=== PATIENT | female | born 1945 | race Caucasian/White ===

== ENCOUNTER 2021-03-19 08:48 | Outpatient (REF) | payer MEDICARE, SELFPAY ==
--- NOTE | ~2021-03-19 | MM_ITS ---
EXAMINATION: MM SCREENING DIGITAL BREAST TOMOSYNTHESIS, BILATERAL CLINICAL INFORMATION: Screening. Asymptomatic. The lifetime risk of breast cancer based on the Tyrer-Cuzick Model is 3%. COMPARISON: Mammography: 03/13/2020, 03/08/2019, 08/19/2017 TECHNIQUE: Digital breast tomosynthesis is performed in both the craniocaudal and mediolateral oblique views along with computer-aided detection (CAD). Synthesized 2D images are generated from the tomosynthesis. FINDINGS: There are scattered areas of fibroglandular density (ACR BI-RADS breast composition Category b). There are no significant masses, abnormal calcifications, or other abnormalities. There is no developing density. Smooth nodularity mid outer right breast are stable. There are scattered benign round calcifications. There is a pacemaker generator overlying and partly obscuring left axilla on the MLO view. MM/MM tomosynthesis screening BI IMPRESSION: No mammographic evidence of malignancy. ASSESSMENT: BI-RADS 2: Benign RECOMMENDATION: Routine annual mammography screening. This patient's information was entered into a reminder system with a target due date for their next mammogram.
== END 2021-03-19 08:49 | disposition home or self-care (01) ==
LOC: HO.MAMMO 08:48
PROVIDERS: Visit Provider Internal Medicine
DX: Z12.31 Encounter for screening mammogram for malignant neoplasm of breast (principal)
CPT/HCPCS: 77063; 77067

== ENCOUNTER 2022-03-22 06:30 | Day surgery (SDC) | payer MEDICARE, SELFPAY ==
[2022-03-16 10:47] VITALS: BMI 36.5
--- NOTE | 2022-03-18 08:42 | MHC.SHP ---
Pre-Procedural Eval Section A Date of Service: 03/18/22 The patient is an INPATIENT: No Changes since office visit: No Cold of Flu in the past 2 weeks, No New Medical Problems, No Changes in Medication and No Patient answered all questions The History & Physical has been completed within 30 days and I have reviewed it.: Yes Section B Chief Complaint: cataract Allergies: Allergies Allergy/AdvReac Type Severity Reaction Status Date / Time lisinopril [From ZESTRIL] AdvReac Intermediate COUGH Unverified 03/16/22 10:39 amlodipine AdvReac Unknown Cant Verified 03/16/22 10:39 remember rxn Plan Diagnosis/Plan: Unchanged I have reviewed the history and physical and performed a pertinent physical examination on my patient. No changes have occurred unless specified.
--- NOTE | 2022-03-19 09:49 | HO.ANESPROP2 ---
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 ICD in situ after cardiac arrest 2009 of unclear etiology (Interrogateion 12/2021 on chart) [facility] Past Medical History Medical History (Updated 03/16/22 @ 10:36 by Sapna Sullivan, RN) CHF (congestive heart failure) History of left bundle branch block (LBBB) HTN (hypertension) Myocardial infarction Oxygen dependent Presence of combination internal cardiac defibrillator (ICD) and pacemaker Tracheostomy in place Surgical History Surgical History (Updated 02/17/22 @ 09:27 by Sapna Sullivan, RN) History of permanent cardiac pacemaker placement History of tonsillectomy History of total right knee replacement (TKR) Hx of partial thyroidectomy Hx of tracheostomy Social History Social History Are you a primary human services care specialist to a significant other at home: No Do you presently have visiting nurse or other home services: Yes (cleaner signs) Patient Tobacco Use Status: Never used Tobacco Second Hand Smoke Exposure: No Use of substances other than those prescribed or required for medical reasons: No Have you been hit, kicked, punched, or otherwise hurt by someone within the past year? If so, by whom?: No Are you DNR?: No Advance Directives: No Advance Directives Information Provided: Yes Advance Directives on File: No Recently lost weight without trying: No Eating poorly because of decreased appetite: No Nutrition Risks: No Nutritional Risk Patient : No Meds Allergies Allergy/AdvReac Type Severity Reaction Status Date / Time lisinopril [From ZESTRIL] AdvReac Intermediate COUGH Verified 03/22/22 07:07 amlodipine AdvReac Unknown Cant Verified 03/16/22 10:39 remember rxn Home Medications Medication Instructions Recorded Confirmed Last Taken Type acetaminophen 500 mg tablet 500 mg PO Q6H PRN Pain 03/16/22 03/16/22 Unknown History albuterol sulfate 2.5 mg/3 mL 1 vial inhalation BID PRN wheezing 03/16/22 03/16/22 Unknown History (0.083 %) solution for nebulization amlodipine 5 mg tablet 1 tab PO DAILY 03/16/22 03/16/22 03/22/22 History aspirin 81 mg capsule 81 mg PO DAILY 03/16/22 03/16/22 Unknown History calcium citrate 250 mg 2 tab PO BID 03/16/22 03/16/22 Unknown History calcium-vitamin D3 5 mcg (200 unit) tablet carvedilol 25 mg tablet 1 tab PO BID 03/16/22 03/16/22 03/22/22 History cholecalciferol (vitamin D3) 25 25 mcg PO 3XW 03/16/22 03/16/22 Unknown History mcg (1,000 unit) tablet (Vitamin D3) docusate sodium 100 mg capsule 100 mg PO DAILY 03/16/22 03/16/22 Unknown History (Colace) fluticasone propionate 50 2 spray intranasal DAILY 03/16/22 03/16/22 Unknown History mcg/actuation nasal spray,suspension furosemide 40 mg tablet 40 tab PO DIRECTED 03/16/22 03/16/22 Unknown History [id number] C-Mn 500 cap PO 03/16/22 Unknown History mg-400 mg capsule (Glucosamine Chondroitin Maximum Strength) ipratropium 0.5 mg-albuterol 3 mg 3 ml inhalation TID PRN Wheezing 03/16/22 03/16/22 03/22/22 History (2.5 mg base)/3 mL nebulization soln losartan 100 mg tablet 1 tab PO DAILY 03/16/22 03/16/22 Unknown History potassium chloride 10 mEq 1 tab PO DAILY 03/16/22 03/16/22 Unknown History tablet,extended release pravastatin 40 mg tablet 1 tab PO BEDTIME 03/16/22 03/16/22 Unknown History Exam Exam Date and Time: March 19, 2022 0949 Height,Weight and Vital Signs: Height 5 ft 4.5 in Weight 97.976 kg Assessment and Plan Assessment Anesthesia Assessment: Chart Reviewed Documented by User: Tracy Walters MD 03/22/22 08:06 [facility] Past Medical History Medical History (Updated 03/16/22 @ 10:36 by Sapna Sullivan RN) CHF (congestive heart failure) History of left bundle branch block (LBBB) HTN (hypertension) Myocardial infarction Oxygen dependent Presence of combination internal cardiac defibrillator (ICD) and pacemaker Tracheostomy in place Family History Family history of problems with anesthesia: No Surgical History Surgical History (Updated 02/17/22 @ 09:27 by Sapna Sullivan RN) History of permanent cardiac pacemaker placement History of tonsillectomy History of total right knee replacement (TKR) Hx of partial thyroidectomy Hx of tracheostomy History of Problems with Anesthesia: No Social History Social History Are you a primary human services care specialist to a significant other at home: No Do you presently have visiting nurse or other home services: Yes (cleaner signs) Patient Tobacco Use Status: Never used Tobacco Second Hand Smoke Exposure: No Use of substances other than those prescribed or required for medical reasons: No Have you been hit, kicked, punched, or otherwise hurt by someone within the past year? If so, by whom?: No Are you DNR?: No Advance Directives: No Advance Directives Information Provided: Yes Advance Directives on File: No Recently lost weight without trying: No Eating poorly because of decreased appetite: No Nutrition Risks: No Nutritional Risk Patient : No Meds Allergies Allergy/AdvReac Type Severity Reaction Status Date / Time lisinopril [From ZESTRIL] AdvReac Intermediate COUGH Verified 03/22/22 07:07 amlodipine AdvReac Unknown Cant Verified 03/16/22 10:39 remember rxn Home Medications Medication Instructions Recorded Confirmed Last Taken Type acetaminophen 500 mg tablet 500 mg PO Q6H PRN Pain 03/16/22 03/16/22 Unknown History albuterol sulfate 2.5 mg/3 mL 1 vial inhalation BID PRN wheezing 03/16/22 03/16/22 Unknown History (0.083 %) solution for nebulization amlodipine 5 mg tablet 1 tab PO DAILY 03/16/22 03/16/22 03/22/22 History aspirin 81 mg capsule 81 mg PO DAILY 03/16/22 03/16/22 Unknown History calcium citrate 250 mg 2 tab PO BID 03/16/22 03/16/22 Unknown History calcium-vitamin D3 5 mcg (200 unit) tablet carvedilol 25 mg tablet 1 tab PO BID 03/16/22 03/16/22 03/22/22 History cholecalciferol (vitamin D3) 25 25 mcg PO 3XW 03/16/22 03/16/22 Unknown History mcg (1,000 unit) tablet (Vitamin D3) docusate sodium 100 mg capsule 100 mg PO DAILY 03/16/22 03/16/22 Unknown History (Colace) fluticasone propionate 50 2 spray intranasal DAILY 03/16/22 03/16/22 Unknown History mcg/actuation nasal spray,suspension furosemide 40 mg tablet 40 tab PO DIRECTED 03/16/22 03/16/22 Unknown History [id number]-cwk C-Mn 500 cap PO 03/16/22 Unknown History mg-400 mg capsule (Glucosamine Chondroitin Maximum Strength) ipratropium 0.5 mg-albuterol 3 mg 3 ml inhalation TID PRN Wheezing 03/16/22 03/16/22 03/22/22 History (2.5 mg base)/3 mL nebulization soln losartan 100 mg tablet 1 tab PO DAILY 03/16/22 03/16/22 Unknown History potassium chloride 10 mEq 1 tab PO DAILY 03/16/22 03/16/22 Unknown History tablet,extended release pravastatin 40 mg tablet 1 tab PO BEDTIME 03/16/22 03/16/22 Unknown History Exam Height,Weight and Vital Signs: Height 5 ft 4.5 in Weight 97.976 kg Vital Signs Temp Pulse Resp BP Pulse Ox O2 Del Method O2 Flow Rate 03/22/22 07:05 97.0 F 68 20 98/31 L 96 Nasal Cannula 1 Airway Mallampati Class: II TM Dist: >3cm Neck ROM: Full Loose/Missing/Broken Teeth: No (No broken or loose per patient) Heart: RRR Lungs: CTAB Other: Trach tube in place with trach mask Assessment and Plan Assessment Anesthesia Assessment: Anesthesia Plan Discussed Final Anesthetic Review Family History of Problems with Anesthesia: No History of Problems with Anesthesia: No NPO: Yes ASA Class: IV Final Preanesthetic Review: No Changes in Pt Med Stat, Meds/Allgs Chart Reviewed, Consent Obtained/Reviewed and Anes Risks/Benef Reviewed Patient Risk: High Procedure Risk: Low Assessment/Block/Sedation in SS: Assess/Block/Sedation-SS Anesthetic Plan Anesthetic Plan: MAC: Disposition: Standard PACU
[2022-03-22 07:05] VITALS: BP 98/31; PULSE 68; RESP 20; TEMP 36.1; O2SAT 96
[2022-03-22] MEDS: Tetracaine HCl/PF 0.5% Oph Sol 4 ML DROPS 1 DROP EYE-RIGHT (07:11)
[2022-03-22] MEDS: Cyclopentolate 1 % Ophth Sol 2 ML DRPBTL 1 DROP EYE-RIGHT ×3 (07:12→07:20)
[2022-03-22] MEDS: Tropicamide 1 % Ophth Sol 3 ML BTL 1 DROP EYE-RIGHT ×3 (07:13→07:21)
[2022-03-22] MEDS: Phenylephrine HCL 2.5% Oph SoL 2 ML BOTTLE 1 DROP EYE-RIGHT ×3 (07:15→07:23)
[2022-03-22] MEDS: Lactated Ringers 500 ML 50 ML IV (07:30)
--- NOTE | 2022-03-22 08:50 | HO.PNOPHT ---
Ophthalmology Procedure Procedure Date of Service: 03/22/22 Ophthalmology Viscoelastic: Reanna Bynumt Dual Pack Pro Ophthalmology Lenses: TECANNETTE [id number] (26) Procedure Notes: PREOPERATIVE DIAGNOSIS: Decreased visual acuity right eye secondary to cataract POSTOPERATIVE DIAGNOSIS: Same PROCEDURE: Right cataract extraction with intraocular lens insertion SURGEON: Geovanni Morel M.D. ANESTHESIA: Topical/MAC ESTIMATED BLOOD LOSS: None COMPLICATIONS: None After obtaining informed consent, the patient was brought to the operating room suite and placed in the supine position. After adequate sedation per anesthesia, topical drops of Tetracaine were given to the right eye. The eye was then prepped and draped in the usual sterile fashion. The operating room microscope was then positioned over the operative eye and a lid speculum placed. A paracentesis was created. Viscoelastic was then instilled into the anterior chamber. A three plane incision was then created temporally, utilizing a 2.85 mm keratome. Capsulotomy forceps were then utilized to create a circular tear capsulotomy. Hydrodissection and hydrodelineation were carried out until adequate mobilization of the nucleus occurred. Phacoemulsification was then utilized to remove the dense central nucleus followed by removal of the cortical material utilizing the automated aspiration irrigation unit. Viscoelastic was instilled into the posterior capsular bag followed by placement of a posterior chamber intraocular lens without difficulty. The residual Viscoelastic was then removed utilizing the automated IA machine. The wound was checked and found to be watertight. The patient tolerated the procedure well and the lid speculum was removed. Intracameral injection of Vigamox 0.1 mL followed by a subtenon injection of Kenalog-40 0.2 mL were administered. The patient will be seen in the a.m.
[2022-03-22 09:18] VITALS: BP 115/48; PULSE 62; RESP 16; TEMP 36.4; O2SAT 97
== END 2022-03-22 09:32 | disposition home or self-care (01) ==
PROVIDERS: PCP Internal Medicine; Visit Provider Ophthalmology
PROC: (CPT 66985; principal; 2022-03-22 08:30)
DX: H25.11 Age-related nuclear cataract, right eye (principal); Z83.511 Family history of glaucoma; H54.7 Unspecified visual loss; E78.00 Pure hypercholesterolemia, unspecified; Z93.0 Tracheostomy status; I11.0 Hypertensive heart disease with heart failure; I50.9 Heart failure, unspecified; I25.2 Old myocardial infarction; Z79.82 Long term (current) use of aspirin; Z79.51 Long term (current) use of inhaled steroids; Z79.899 Other long term (current) drug therapy; Z99.81 Dependence on supplemental oxygen; Z88.8 Allergy status to other drugs, medicaments and biological substances; Z87.01 Personal history of pneumonia (recurrent); Z95.810 Presence of automatic (implantable) cardiac defibrillator; Z96.651 Presence of right artificial knee joint
CPT/HCPCS: 66984; J2250; J3010; J3300; V2632

== ENCOUNTER 2022-03-24 08:40 | Outpatient (REF) | payer MEDICARE, SELFPAY ==
--- NOTE | ~2022-03-24 | MM_ITS ---
EXAMINATION: BONE DENSITOMETRY CLINICAL INDICATION: Menopause. COMPARISON: Previous BD dated 08/19/2017 and baseline BD dated 11/26/2011. TECHNIQUE: Using a PureWRX DXA System (software version: 13.1) manufactured by [employer], dual-energy x-ray absorptiometry was performed of the lumbar spine and left hip. The images are of good technical quality. Summary results are attached. FINDINGS: AP SPINE L1-L4: Current: BMD 1.238 g/cm2, Z-score 1.1, T-score 0.5, normal, 0.6% decrease from previous, 0.2% decrease from baseline (<5% change is not significant). Prior: BMD 1.246 g/cm2. Baseline: BMD 1.241 g/cm2. LEFT FEMUR, NECK: Current: BMD 0.727 g/cm2, Z-score -1.0, T-score -2.2, osteopenia. Prior: BMD 0.710 g/cm2. Baseline: BMD 0.707 g/cm2. LEFT FEMUR, TOTAL: Current: BMD 0.821 g/cm2, Z-score -0.5, T-score -1.5, osteopenia, 9.4% decrease from previous, 7.6% decrease from baseline (<5% change is not significant). Prior: BMD 0.906 g/cm2. Baseline: BMD 0.889 g/cm2. IDENTIFIED RISK FACTORS: Menopause. HISTORY OF FRACTURE: None listed. MEDICATIONS: Calcium, vitamin D. MM/XR DEXA axial skeleton IMPRESSION: 1. DIAGNOSIS: Osteopenia based on the lowest T-score value of -2.2 in the femoral neck applying World Health Organization criteria. 2. 10-YEAR FRACTURE RISK PREDICTION, FRAX: Major osteoporotic fracture (clinical spine, forearm, hip or shoulder) 14.7%. Hip fracture 4.2%. 3. Treatment Recommendations: NOF guidelines recommend consideration for treatment in postmenopausal women and men age 50 and older presenting with the following: -A hip or vertebral (clinical or morphometric) fracture. -T-score less than or equal to -2.5 at the femoral neck or spine after appropriate evaluation to exclude secondary causes. -Low bone mass at the hip or spine and a 10-year fracture probability by FRAX of greater than or equal to 3% for hip fracture or greater than or equal to 20% for major osteoporotic fracture based on the [place] adapted WHO algorithm. 4. Other Recommendations: All treatment decisions require clinical judgment and consideration of individual patient factors, including patient preferences, comorbidities, previous drug use, risk factors not captured in the FRAX model (e.g. frailty, falls, vitamin D deficiency, increased bone turnover, interval significant decline in bone density) and possible under or overestimation of fracture risk by FRAX. Additional medical evaluation for secondary cause of low bone mineral density may be appropriate. FUTURE SCAN RECOMMENDATION: People with diagnosed cases of osteoporosis or at high risk for fracture should have regular bone mineral density tests. For patients eligible for Medicare, routine testing is allowed once every 2 years. The testing frequency can be increased to one year for patients who have rapidly progressing disease, those who are receiving or discontinuing medical therapy to restore bone mass, or have additional risk factors.
--- NOTE | ~2022-03-24 | MM_ITS ---
EXAMINATION: MM SCREENING DIGITAL BREAST TOMOSYNTHESIS, BILATERAL CLINICAL INFORMATION: Screening. Asymptomatic. The lifetime risk of breast cancer based on the Tyrer-Cuzick Model is 3%. COMPARISON: Mammography: 02/17/2021, 03/13/2020, 03/08/2019, 08/19/2017, 08/04/2016 TECHNIQUE: Digital breast tomosynthesis is performed in both the craniocaudal and mediolateral oblique views along with computer-aided detection (CAD). Synthesized 2D images are generated from the tomosynthesis. FINDINGS: There are scattered areas of fibroglandular density (ACR BI-RADS breast composition Category b). Pacemaker generator overlies and partly obscures posterior left axilla on MLO view. There is old intramammary nodes mid and posterior upper outer right breast similar to prior studies. Neither breast shows abnormal calcifications. The axilla are unremarkable. Left breast shows no interval mass or architectural abnormality or developing density. Right breast has parenchymal asymmetry mid upper outer quadrant questionably more prominent versus shifting fibroglandular tissue. Patient will be recalled for additional imaging. MM/MM tomosynthesis screening BI IMPRESSION: Right: -Parenchymal asymmetry mid upper outer right breast questionably more prominent versus shifting fibroglandular tissue. Left: -No mammographic evidence of malignancy. ASSESSMENT: BI-RADS 0: Incomplete - Need Additional Imaging Evaluation RECOMMENDATION: 1. Additional views of the right breast (rolled CC x2, spot MLO). 2. Targeted ultrasound if warranted after review of the additional views. 3. Radiology department staff will contact the patient for additional imaging. This patient's information was entered into a reminder system with a target due date for their next mammogram.
== END 2022-03-24 08:41 | disposition home or self-care (01) ==
LOC: HO.MAMMO 08:40
PROVIDERS: Visit Provider Internal Medicine
DX: Z12.31 Encounter for screening mammogram for malignant neoplasm of breast (principal); Z13.820 Encounter for screening for osteoporosis; Z78.0 Asymptomatic menopausal state
CPT/HCPCS: 77063; 77067; 77080

== ENCOUNTER 2022-03-29 13:15 | Outpatient (REF) | payer MEDICARE, SELFPAY ==
--- NOTE | ~2022-03-29 | MM_ITS ---
EXAMINATION: MM DIAGNOSTIC DIGITAL BREAST TOMOSYNTHESIS, RIGHT CLINICAL INFORMATION: Recall from screening for parenchymal asymmetry mid upper outer right breast questionably more prominent versus shifting fibroglandular tissue. TC score 3%. COMPARISON: Mammography: 03/24/2022, 03/19/2021, 03/13/2020 TECHNIQUE: Digital breast tomosynthesis is performed. 2D images are generated from the tomosynthesis. The following views are obtained: Rolled CC x2, spot MLO, standard ML. FINDINGS: There are scattered areas of fibroglandular density (ACR BI-RADS breast composition Category b). The additional views show no interval developing density or mass or architectural abnormality in the area for recall. No significant changes from prior studies. Results are discussed with the patient at time of visit. MM/MM tomosynthesis added views R IMPRESSION: Additional views show no developing density or interval change from prior studies. ASSESSMENT: BI-RADS 2: Benign RECOMMENDATION: Routine annual mammography screening. This patient's information was entered into a reminder system with a target due date for their next mammogram.
== END 2022-03-29 13:16 | disposition home or self-care (01) ==
LOC: HO.MAMMO 13:15
PROVIDERS: Visit Provider Internal Medicine
DX: N64.89 Other specified disorders of breast (principal)
CPT/HCPCS: 77061; 77065

== ENCOUNTER 2022-04-12 06:18 | Day surgery (SDC) | payer MEDICARE, SELFPAY ==
[2022-03-16 10:54] VITALS: BMI 36.5
--- NOTE | 2022-04-09 08:08 | MHC.SHP ---
Pre-Procedural Eval Section A Date of Service: 04/09/22 The patient is an INPATIENT: No Changes since office visit: No Cold of Flu in the past 2 weeks, No New Medical Problems, No Changes in Medication and No Patient answered all questions The History & Physical has been completed within 30 days and I have reviewed it.: Yes Section B Chief Complaint: cataract Allergies: Allergies Allergy/AdvReac Type Severity Reaction Status Date / Time lisinopril [From ZESTRIL] AdvReac Intermediate COUGH Verified 03/22/22 07:07 amlodipine AdvReac Unknown Cant Verified 03/16/22 10:39 remember rxn Plan Diagnosis/Plan: Unchanged I have reviewed the history and physical and performed a pertinent physical examination on my patient. No changes have occurred unless specified.
--- NOTE | 2022-04-09 11:26 | HO.ANESPROP2 ---
Documented by User: Nika Jacinto NP 04/09/22 11:29 HPI - Anesthesia Eval Consult details Narrative: 76yo F for Left Cataract Extraction IOL Insertion Trach/O2 dependant PCP cleared Right Eye 03/22/22 with TIVA: Fent 25, Midaz 0.5 PMFSH Past Medical History Medical History CHF (congestive heart failure) History of left bundle branch block (LBBB) HTN (hypertension) Myocardial infarction Oxygen dependent Presence of combination internal cardiac defibrillator (ICD) and pacemaker Tracheostomy in place Family History Family history of problems with anesthesia: No Surgical History Surgical History History of permanent cardiac pacemaker placement History of tonsillectomy History of total right knee replacement (TKR) Hx of partial thyroidectomy Hx of tracheostomy History of Problems with Anesthesia: No Social History Social History Are you a primary care transition mgr to a significant other at home: No Do you presently have visiting nurse or other home services: Yes (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 If so, by whom?: No Are you DNR?: No Advance Directives: No Advance Directives Information Provided: Yes Advance Directives on File: No Recently lost weight without trying: No Eating poorly because of decreased appetite: No Nutrition Risks: No Nutritional Risk Patient : No Meds Allergies Allergy/AdvReac Type Severity Reaction Status Date / Time lisinopril [From ZESTRIL] AdvReac Intermediate COUGH Verified 03/22/22 07:07 amlodipine AdvReac Unknown Cant Verified 03/16/22 10:39 remember rxn Home Medications Medication Instructions Recorded Confirmed Last Taken Type acetaminophen 500 mg tablet 500 mg PO Q6H PRN Pain 03/16/22 03/16/22 Unknown History albuterol sulfate 2.5 mg/3 mL 1 vial inhalation BID PRN wheezing 03/16/22 03/16/22 Unknown History (0.083 %) solution for nebulization amlodipine 5 mg tablet 1 tab PO DAILY 03/16/22 03/16/22 03/22/22 History aspirin 81 mg capsule 81 mg PO DAILY 03/16/22 03/16/22 Unknown History calcium citrate 250 mg 2 tab PO BID 03/16/22 03/16/22 Unknown History calcium-vitamin D3 5 mcg (200 unit) tablet carvedilol 25 mg tablet 1 tab PO BID 03/16/22 03/16/22 03/22/22 History cholecalciferol (vitamin D3) 25 25 mcg PO 3XW 03/16/22 03/16/22 Unknown History mcg (1,000 unit) tablet (Vitamin D3) docusate sodium 100 mg capsule 100 mg PO DAILY 03/16/22 03/16/22 Unknown History (Colace) fluticasone propionate 50 2 spray intranasal DAILY 03/16/22 03/16/22 Unknown History mcg/actuation nasal spray,suspension furosemide 40 mg tablet 40 tab PO DIRECTED 03/16/22 03/16/22 Unknown History [id number]-[id number]-vlg C-Mn 500 cap PO 03/16/22 Unknown History mg-400 mg capsule (Glucosamine Chondroitin Maximum Strength) ipratropium 0.5 mg-albuterol 3 mg 3 ml inhalation TID PRN Wheezing 03/16/22 03/16/22 03/22/22 History (2.5 mg base)/3 mL nebulization soln losartan 100 mg tablet 1 tab PO DAILY 03/16/22 03/16/22 Unknown History potassium chloride 10 mEq 1 tab PO DAILY 03/16/22 03/16/22 Unknown History tablet,extended release pravastatin 40 mg tablet 1 tab PO BEDTIME 03/16/22 03/16/22 Unknown History Exam Exam Date and Time: April 09, 2022 1126 Height,Weight and Vital Signs: Height 5 ft 4.5 in Weight 97.976 kg Assessment and Plan Assessment Anesthesia Assessment: Chart Reviewed Final Anesthetic Review Family History of Problems with Anesthesia: No History of Problems with Anesthesia: No Documented by User: Lizy Pacheco MD 04/12/22 07:20 [facility] Past Medical History Medical History CHF (congestive heart failure) History of left bundle branch block (LBBB) HTN (hypertension) Myocardial infarction Oxygen dependent Presence of combination internal cardiac defibrillator (ICD) and pacemaker Tracheostomy in place Surgical History Surgical History History of permanent cardiac pacemaker placement History of tonsillectomy History of total right knee replacement (TKR) Hx of partial thyroidectomy Hx of tracheostomy Social History Social History Are you a primary care transition mgr to a significant other at home: No Do you presently have visiting nurse or other home services: Yes (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 If so, by whom?: No Are you DNR?: No Advance Directives: No Advance Directives Information Provided: Yes Advance Directives on File: No Recently lost weight without trying: No Eating poorly because of decreased appetite: No Nutrition Risks: No Nutritional Risk Patient : No Meds Allergies Allergy/AdvReac Type Severity Reaction Status Date / Time lisinopril [From ZESTRIL] AdvReac Intermediate COUGH Verified 03/22/22 07:07 amlodipine AdvReac Unknown Cant Verified 03/16/22 10:39 remember rxn Home Medications Medication Instructions Recorded Confirmed Last Taken Type acetaminophen 500 mg tablet 500 mg PO Q6H PRN Pain 03/16/22 03/16/22 Unknown History albuterol sulfate 2.5 mg/3 mL 1 vial inhalation BID PRN wheezing 03/16/22 03/16/22 Unknown History (0.083 %) solution for nebulization amlodipine 5 mg tablet 1 tab PO DAILY 03/16/22 03/16/22 03/22/22 History aspirin 81 mg capsule 81 mg PO DAILY 03/16/22 03/16/22 Unknown History calcium citrate 250 mg 2 tab PO BID 03/16/22 03/16/22 Unknown History calcium-vitamin D3 5 mcg (200 unit) tablet carvedilol 25 mg tablet 1 tab PO BID 03/16/22 03/16/22 03/22/22 History cholecalciferol (vitamin D3) 25 25 mcg PO 3XW 03/16/22 03/16/22 Unknown History mcg (1,000 unit) tablet (Vitamin D3) docusate sodium 100 mg capsule 100 mg PO DAILY 03/16/22 03/16/22 Unknown History (Colace) fluticasone propionate 50 2 spray intranasal DAILY 03/16/22 03/16/22 Unknown History mcg/actuation nasal spray,suspension furosemide 40 mg tablet 40 tab PO DIRECTED 03/16/22 03/16/22 Unknown History ncybuwkvjuv-oiiehsilg-rga C-Mn 500 cap PO 03/16/22 Unknown History mg-400 mg capsule (Glucosamine Chondroitin Maximum Strength) ipratropium 0.5 mg-albuterol 3 mg 3 ml inhalation TID PRN Wheezing 03/16/22 03/16/22 03/22/22 History (2.5 mg base)/3 mL nebulization soln losartan 100 mg tablet 1 tab PO DAILY 03/16/22 03/16/22 Unknown History potassium chloride 10 mEq 1 tab PO DAILY 03/16/22 03/16/22 Unknown History tablet,extended release pravastatin 40 mg tablet 1 tab PO BEDTIME 03/16/22 03/16/22 Unknown History Exam Airway Mallampati Class: II TM Dist: >3cm Neck ROM: Full Loose/Missing/Broken Teeth: No Heart: RRR Lungs: CTA Assessment and Plan Final Anesthetic Review NPO: Yes ASA Class: IV Final Preanesthetic Review: Meds/Allgs Chart Reviewed, Consent Obtained/Reviewed and Anes Risks/Benef Reviewed Patient Risk: High Procedure Risk: Low Anesthetic Plan Anesthetic Plan: MAC: Disposition: Standard PACU
[2022-04-12 06:36] VITALS: BP 98/43; PULSE 71; RESP 18; TEMP 36.9; O2SAT 95
[2022-04-12] MEDS: Phenylephrine HCL 2.5% Oph SoL 2 ML BOTTLE 1 DROP EYE-LEFT ×3 (06:46→06:51)
[2022-04-12] MEDS: Cyclopentolate 1 % Ophth Sol 2 ML DRPBTL 1 DROP EYE-LEFT ×3 (06:47→06:52)
[2022-04-12] MEDS: Tropicamide 1 % Ophth Sol 3 ML BTL 1 DROP EYE-LEFT ×3 (06:47→06:52)
[2022-04-12] MEDS: Tetracaine HCl/PF 0.5% Oph Sol 4 ML DROPS 1 DROP EYE-LEFT (06:47)
[2022-04-12] MEDS: Lactated Ringers 500 ML 50 ML IV (06:56)
[2022-04-12 07:02] VITALS: BMI 36.6
--- NOTE | 2022-04-12 07:16 | HO.PNOPHT ---
Ophthalmology Procedure Procedure Date of Service: 04/12/22 Ophthalmology Viscoelastic: Healraya Bynumt Dual Pack Pro Ophthalmology Lenses: TECANNETTE [id number] (24) Procedure Notes: PREOPERATIVE DIAGNOSIS: Decreased visual acuity left eye secondary to cataract POSTOPERATIVE DIAGNOSIS: Same PROCEDURE: Left cataract extraction with intraocular lens insertion SURGEON: Geovanni Morel M.D. ANESTHESIA: Topical/MAC ESTIMATED BLOOD LOSS: None COMPLICATIONS: None After obtaining informed consent, the patient was brought to the operation room suite and placed in the supine position. After adequate sedation per anesthesia, topical drops of Tetracaine were given to the left eye. The eye was then prepped and draped in the usual sterile fashion. The operating room microscope was then positioned over the operative eye and a lid speculum placed. A paracentesis was created. Viscoelastic was then instilled into the anterior chamber. A three plane incision was then created temporally, utilizing a 2.85 mm keratome. Capsulotomy forceps were then utilized to create a circular tear capsulotomy. Hydrodissection and hydrodelineation were carried out until adequate mobilization of the nucleus occurred. Phacoemulsification was then utilized to remove the dense central nucleus followed by removal of the cortical material utilizing the automated aspiration irrigation unit. Viscoat elastic was instilled into the posterior capsular bag followed by placement of a posterior chamber intraocular lens without difficulty. The residual Viscoat elastic was then removed utilizing the automated IA machine. The wound was check and found to be watertight. The patient tolerated the procedure well and the lid speculum was removed. Intracameral injection of Vigamox 0.1 mL followed by a subtenon injection of Kenalog-40 0.2 mL were administered. The patient will be seen in the a.m.
[2022-04-12 07:52] VITALS: BP 131/56; PULSE 65; RESP 16; TEMP 36.6; O2SAT 97
== END 2022-04-12 07:55 | disposition home or self-care (01) ==
PROVIDERS: PCP Internal Medicine; Visit Provider Ophthalmology
PROC: (CPT 66985; principal; 2022-04-12 07:30)
DX: H25.12 Age-related nuclear cataract, left eye (principal); H54.7 Unspecified visual loss; Z83.511 Family history of glaucoma; D23.121 Other benign neoplasm of skin of left upper eyelid, including canthus; I11.0 Hypertensive heart disease with heart failure; I50.9 Heart failure, unspecified; Z95.810 Presence of automatic (implantable) cardiac defibrillator; J44.9 Chronic obstructive pulmonary disease, unspecified; Z93.0 Tracheostomy status; Z99.81 Dependence on supplemental oxygen; E78.00 Pure hypercholesterolemia, unspecified; Z79.899 Other long term (current) drug therapy; Z79.82 Long term (current) use of aspirin; Z79.51 Long term (current) use of inhaled steroids; Z88.8 Allergy status to other drugs, medicaments and biological substances
CPT/HCPCS: 66984; J2250; J3300; V2632

== ENCOUNTER 2023-03-28 10:04 | Outpatient (REF) | payer MEDICARE, SELFPAY ==
--- NOTE | ~2023-03-28 | MM_ITS ---
EXAMINATION: MM SCREENING DIGITAL BREAST TOMOSYNTHESIS, BILATERAL CLINICAL INFORMATION: Screening. Asymptomatic. The lifetime risk of breast cancer based on the Tyrer-Cuzick Model is 2.3%. COMPARISON: Mammography: 03/29/2022, and numerous prior exams dating back to 2010. TECHNIQUE: Digital breast tomosynthesis is performed in both the craniocaudal and mediolateral oblique views along with computer-aided detection (CAD). Synthesized 2D images are generated from the tomosynthesis. FINDINGS: There are scattered areas of fibroglandular density (ACR BI-RADS breast composition Category b). There are no suspicious masses, suspicious grouped calcifications, or areas of architectural distortion. Pacemaker again noted left axillary region. The parenchymal pattern is stable from prior exams, with stable bilateral nodular foci which have remained unchanged over several years. No new or developing mass or suspicious asymmetry. MM/MM tomosynthesis screening BI IMPRESSION: No mammographic evidence of malignancy. Stable benign findings. ASSESSMENT: BI-RADS BI-RADS 2 - Benign Findings RECOMMENDATION: Routine annual mammography screening. 1 year F/U This examination should not preclude the clinical evaluation of a suspicious palpable abnormality. This patient's information was entered into a reminder system with a target due date for their next mammogram.
== END 2023-03-28 10:05 | disposition home or self-care (01) ==
LOC: HO.MAMMO 10:04
PROVIDERS: PCP Internal Medicine; Visit Provider Internal Medicine
DX: Z12.31 Encounter for screening mammogram for malignant neoplasm of breast (principal)
CPT/HCPCS: 77063; 77067

== ENCOUNTER → 2023-03-28 10:15 | Outpatient (BNV) | payer MEDICARE, SELFPAY | PROVIDERS: PCP Internal Medicine; Visit Provider Radiology Diagnostic Radiology | DX: Z12.31 Encounter for screening mammogram for malignant neoplasm of breast (principal) | CPT/HCPCS: 77063; 77067 ==

== ENCOUNTER 2024-04-02 09:21 | Outpatient (REF) | payer MEDICARE, SELFPAY ==
--- NOTE | ~2024-04-02 | MM_ITS ---
EXAMINATION: MM SCREENING DIGITAL BREAST TOMOSYNTHESIS, BILATERAL CLINICAL INFORMATION: Screening. Asymptomatic. COMPARISON: Mammography: This study is compared with prior exams dating back to 2020. TECHNIQUE: Digital breast tomosynthesis is performed in both the craniocaudal and mediolateral oblique views along with computer-aided detection (CAD). Synthesized 2D images are generated from the tomosynthesis. FINDINGS: There are scattered areas of fibroglandular density (ACR BI-RADS breast composition Category b). There are no significant masses, abnormal calcifications, or other abnormalities. MM/MM tomosynthesis screening BI IMPRESSION: No mammographic evidence of malignancy. ASSESSMENT: BI-RADS BI-RADS 1 - Negative RECOMMENDATION: Routine annual mammography screening. 1 year F/U This examination should not preclude the clinical evaluation of a suspicious palpable abnormality. This patient's information was entered into a reminder system with a target due date for their next mammogram. Electronically signed by: Chrissy Watts MD 04/26/2024 03:19 PM EDT
== END 2024-04-02 09:22 | disposition home or self-care (01) ==
LOC: HO.MAMMO 09:21
PROVIDERS: PCP Internal Medicine; Visit Provider Internal Medicine
DX: Z12.31 Encounter for screening mammogram for malignant neoplasm of breast (principal)
CPT/HCPCS: 77063; 77067

== ENCOUNTER → 2024-04-02 09:30 | Outpatient (BNV) | payer MEDICARE, SELFPAY | PROVIDERS: PCP Internal Medicine; Visit Provider Radiology Diagnostic Radiology | DX: Z12.31 Encounter for screening mammogram for malignant neoplasm of breast (principal) | CPT/HCPCS: 77063; 77067 ==

== ENCOUNTER 2025-04-10 09:12 | Outpatient (REF) | payer MEDICARE, SELFPAY ==
--- NOTE | ~2025-04-10 | MM_ITS ---
EXAMINATION: MM SCREENING DIGITAL BREAST TOMOSYNTHESIS, BILATERAL CLINICAL INFORMATION: Screening. Asymptomatic. COMPARISON: Mammography: Comparison is made with available priors TECHNIQUE: Digital breast mammography with tomosynthesis is performed in both the craniocaudal and mediolateral oblique views along with computer-aided detection (CAD). FINDINGS: There are scattered areas of fibroglandular density (ACR BI-RADS breast composition Category b). There are no significant masses, abnormal calcifications, or other abnormalities. MM/MM tomosynthesis screening BI IMPRESSION: No mammographic evidence of malignancy. ASSESSMENT: BI-RADS BI-RADS 1 - Negative RECOMMENDATION: Routine annual mammography screening. 1 year F/U This examination should not preclude the clinical evaluation of a suspicious palpable abnormality. This patient's information was entered into a reminder system with a target due date for their next mammogram. Electronically signed by: Suki Johnson DO 04/11/2025 04:53 PM EDT
--- OUTSIDE RECORDS SUMMARY | 2025-04-10 09:54 | XMS_ITS | Encounter Summary ---
Author Organization [facility] Address [address] [address] Phone Care Team Providers Care Manufacturing Clerk Name Role Phone Perez Real MD Primary Care Provider [phone] Perez Real MD Unavailable [phone] Nilo Flores MD Unavailable [phone] Soraya Bonilla MD Unavailable [phone] Suleiman Clements MD Unavailable Encounter Details Date Type Department Care Team (Late st Contact Info) Description 03/26/2025 Orders Only [facility] [address] [place] [address] Provider, MD Rosalinda [address] [place] [id number] Social History Tobacco Use Types Packs/Day Years Used Date Smoking Tobacco: Never Smokeless Tobacco: Never Alcohol Use Standard Drinks/Week Comments Not Currently 0 (1 standard drink = 0.6 oz pur e alcohol) Education Answer Date Recorded Are you interested in more education? Not on moustapha e 12/18/2022 Are you concerned about learning? Not on file 12/18/2022 No 12/18/2022 No 12/18/2022 Digital Access Answer Date Recorded No 01/14/2023 No 01/14/2023 Reliable internet access at home? Not on file 01/14/2023 Device with a working camera? Not on file Intimate Partner Violence Answer Date R ecorded Denied Basic Needs Not on file 12/04/2024 In the past 12 months have y ou been in a relationship with a person who hurts, threatens, or tries to control you? No 12/04/2024 Worried food would run out Not on file 12/04 In the past 12 months have y ou been in a relationship with a person who hurts, threatens, or tries to control you? No 12/04/2024 Comments No Sex and Gender Information Value Date Recorded Sex Assigned at Female 03/12/2022 3:22 PM EDT Legal Sex Female 5:52 PM EST Gender Identity Female 03/12/2022 3:22 PM EDT Sexual Orientation Straight 03/12/2022 3: 22 PM EDT documented as of this encounter Plan of Treatment Upcoming Encounters Date Type Department Care Team (Late st Contact Info) Description 04/15/2025 11:30 AM EDT Office Visit [facility] [address] [place] [address] Perez Rela MD [address] [place] [address] [email or web address] documented as of this encounter Procedures Procedure Name Priority Date/Time Associated Diagnosis Comments OUTSIDE PROCEDURE Routine 03/26/2025 12: 44 PM EDT documented in this encounter Results * Outside Procedure (03/26/2025 12:44 PM EDT) Historical Provider PROCEDURE/MINOR SURGICAL PERFORMABLES Final Result documented in this encounter Visit Diagnoses Not on filedocumented in this encounter Additional Health Concerns Assessment Noted Time PHQ-2 Depression Total Score: 1 12/05/19 25 10:58 AM EDT documented as of this encounter Care Teams Manufacturing Clerk Relationship Specialty Start Date End Date Perez Real MD [address] [place] [address] PCP - General 02/19/14 Perez Real MD [address] [place] [address] [email or web address] Insurance Assigned Provider 11/26/23 Nilo Flores MD [address] [place] [id number] Gastroenterology 06/26/20 [place] [address] [place] [address] Vascular Surgery 06/26/20 Suleiman Clements MD [address] [place] [address] [email or web address] Cardiology 01/15/25 documented as of this encounter Additional Source Comments The information contained in this document represents components of the legal health record. It is not the complete legal health record.[facility]
--- OUTSIDE RECORDS SUMMARY | 2025-04-10 09:54 | XMS_ITS | Patient Health Record ---
Author Organization [facility] Address [address] [place] [id number] Care Team Providers Care Pre Assembly Wirer Name Role Phone Perez Real MD Primary Care Provider Nilo Owusu Unavailable [phone] Allergies Allergen (clinical drug ingredient) Drug/Non Drug Allergy documented on EMR Reaction Allergy Type Onset Date Status lisinopril Zestril Unknown Drug Allergy Active Reason For Referral No Information Medications Medication SIG (Take, Route, Frequency, Duration) Notes Start Date End Date Status Pravastatin Sodium 40 MG 1 tablet Orally Once a day Active Furosemide 60 mg 1 tablet Orally Twic e a day Active Potassium Chloride ER 10 MEQ TAKE 1 TABLET BY MOUTH ONCE DAILY Oral for 90 Active Albuterol Sulfate (2.5 MG/3ML) 0.083% USE 1 VIAL (3ML) IN NEBULIZER EVERY 8 HOURS NEEDED FOR WHEEZING OR SHORTNESS OF BREATH Inhalation for 17 Active Fluticasone Furoate 50 MCG/ACT 2 puffs Inhalation Once a day Active Stool Softener 100 MG 1 capsule as neede d Orally Once a day for 30 day(s) Active Carvedilol 25 MG 1 tablet with food O rally Twice a day Active Citracal Plus - as directed Orally Active Losartan Potassium 100 MG 1 tablet Orall y Once a day Active Aspirin 81 MG 1 tablet Orally Once a day Active Vitamin D3 1000 UNIT 1 tablet Orally Onc e a day Active amLODIPine Besylate 5 MG 1 tablet Orally Once a day Active Immunizations Vaccine Route Administration Date Status Comme nts Flu vaccine no Preserv 3 and > Unknown 05/08/2014 Admin istered Flu vaccine no Preserv 3 and > Unknown 06/07/2017 Admin istered Influenza Unknown 04/22/2020 Administered Problems Problem Type SNOMED Code ICD Code Onset Dates Problem Status W/U Status Risk Notes Problem 112266490 Encounter for screening for malignant neoplasm of colon (Z12.11) Active confirmed Problem 199102788 Long-term use of aspirin therapy (Z79.82) Active confirmed Plan Of Treatment Future Test Test Name Order Date COLONOSCOPY 12/02/2017 Insurance Providers Payer Name Payer Address Payer Phone Subscriber Number Group Number Insured Name Patient Relationship to Insured Coverage Start Date Coverage End Date MEDICARE OF [place] [address] [place] [address] [phone] [id number] MUNIR KNOX Self - patient is the insured [employer] ATT[employer] CLAIMS [address] [place] [address] [id number] MUNIR KNOX Self - patient is the insured Medical (General) History Medical History History ICD Code Colonoscopy 06-02-2007--nega tive except for diverticulosis and internal hemorrhoids; colonoscopy in 2001 with a hyperplastic polyp--Dr. Feldman Hypertension Arthritis Left bundle branch block Sleep apnea Depressed cardiac EF--reports 20% Hyperlipidemia Cardiac arrest in 03/2010---denies associ ated [place] Denies [place],DM,CVA,Lung disease,renal dise ase Pneumonia 2017 with subseque nt need for supplemental oxygen via her tracheostomy Surgical History Surgery Date(Month/Year) Knee surgery Tracheostomy due to damage t o her vocal cords from intubation from a cardiac arrest Vocal cord surgery Cholecystectomy Thyroidectomy Pacemaker/Defibrillator Right knee replacement
== END 2025-04-10 09:13 | disposition home or self-care (01) ==
LOC: HO.MAMMO 09:12
PROVIDERS: PCP Internal Medicine; Visit Provider Internal Medicine
DX: Z12.31 Encounter for screening mammogram for malignant neoplasm of breast (principal)
CPT/HCPCS: 77063; 77067

== ENCOUNTER → 2025-04-10 09:30 | Outpatient (BNV) | payer MEDICARE, SELFPAY | PROVIDERS: PCP Internal Medicine; Visit Provider Internal Medicine | DX: Z12.31 Encounter for screening mammogram for malignant neoplasm of breast (principal) | CPT/HCPCS: 77063; 77067 ==